=== PATIENT | female | born 1945 | race Caucasian/White ===

== ENCOUNTER → 2017-11-17 | Outpatient (CLI) | payer MEDICARE, OTHER ==
[~2017-11-17] MED LIST: ASCO100T PO; ASPI-1441 PO; AZIT-18 PO; CALC-682 PO; CELE-1 PO; CEPH500T7 PO; CHOL10005 PO; CYCL10TA29 PO; DICY-42 PO; DULO60CA51 PO; EMBREL; FLAX100041 PO; FLUT16SP20 NS; FOLI0.8C PO; GLUC500C29 PO; HYDR-4309 PO; LEV75 PO; METH2.5T43 PO; MINOCY50PT PO; MONT10TA PO; NITR-105 PO; ONDA4TAB PO; OXYC-374 PO; OXYGEN INH; PRE5 PO; PRED15SO5 OP; SULF500T46 PO; VITA1CAP55 PO
== END ==
LOC: RESP 06:43
PROVIDERS: ATTEND Nurse Practitioner Family
DX: G47.33 Obstructive sleep apnea (adult) (pediatric) (principal); R53.83 Other fatigue; R06.02 Shortness of breath; J98.4 Other disorders of lung
CPT/HCPCS: 94060; 94726; 94729

== ENCOUNTER → 2018-03-26 | Outpatient (CLI) | payer MEDICARE, OTHER ==
[2018-03-26 15:10] LABS: PLATELET COUNT, AUTOMATED 235 K/uL (150-450)
== END ==
LOC: LAB 14:54
PROVIDERS: ATTEND Physician Assistant
DX: M05.79 Rheumatoid arthritis with rheumatoid factor of multiple sites without organ or systems involvement (principal); Z79.899 Other long term (current) drug therapy
CPT/HCPCS: 36415; 82565; 84450; 85025; 85651

== ENCOUNTER → 2018-03-26 | Outpatient (CLI) | payer MEDICARE, OTHER ==
--- NOTE | 2018-03-27 15:46 | RADIOLOGY IMAGING REPORT ---
FACILITY: [facility] PATIENT NAME: JUAN CARDENAS : [id number] MR: [id number] V: [id number] EXAM DATE: [id number] ORDERING PHYSICIAN: SWATHI MOTA TECHNOLOGIST: Sophia Leiva PROCEDURE:BILATERAL DIGITAL SCREENING MAMMOGRAM WITH CAD ASSISTED INTERPRETATION & 3D TOMOSYNTHESIS COMPARISON:Prior mammograms dated 05/05/14. INDICATIONS:SCREENING FINDINGS: A small amount of fibroglandular tissue is seen throughout the breasts. The parenchymal pattern has remained stable allowing for difference in mammographic technique & patient positioning. There is no evidence of malignant appearing mass, malignant appearing calcification or other secondary sign of malignancy in either breast. DIAGNOSTIC CATEGORY 1--NEGATIVE. RECOMMENDATIONS: ROUTINE MAMMOGRAM AND CLINICAL EVALUATION. IMPRESSION: BIRADS 1: Negative. No significant abnormality is seen. Dictated by: Archana Yuan M.D. on 03/26/2018 at 15:56 Transcribed by: JUAN on 03/27/2018 at 8:09 Approved by: Archana Yuan M.D. on 03/27/2018 at 15:45 [facility]
== END ==
LOC: MAMO 03-20 02:11
PROVIDERS: ATTEND Nurse Practitioner Family
DX: Z12.31 Encounter for screening mammogram for malignant neoplasm of breast (principal)
CPT/HCPCS: 77063; 77067

== ENCOUNTER 2018-07-14 17:01 | Emergency (ER) | payer MEDICARE, OTHER ==
--- NOTE | 2018-07-14 17:20 | ER Report ---
History and Physical Time Seen By MD: 17:15 Hx. of Stated Complaint: CHEST PAIN SINCE 12:30. WAS DRIVING AND STRESSED OUT. WENT HOME, IT GOT WORSE, WENT TO URGENT CARE. 2 0.4 NTG 323MG ASA 25MCG FENTYNAL HPI/ROS CHIEF COMPLAINT: Chest pain HISTORY OF PRESENT ILLNESS: This is a 72-year-old female presents to the em ergency department via EMS for chest pain. Patient states today she was downtown running some errands, around 12:30 she developed some anterior chest pain that did radiate to her back between her shoulder blades. Patient thought that she should go have it evaluated went urgent care, was subtotally sent to the ER for further evaluation. Patient arrives almost pain-free at this time, she did get nitroglycerin and round. They didn't EKG at urgent care there was some concern of flipped T waves. Patient denies shortness of breath, no nausea or vomiting, no diaphoresis. No recent illnesses. Patient states she has been under increased stress here recently, she does help take care of her mother who lives with her. No headaches or rashes. No other complaints. REVIEW OF SYSTEMS: Constitutional: No fever, no chills. Eyes: No discharge. ENT: No sore throat. Cardiovascular: As above. Respiratory: No cough, no shortness of breath. Gastrointestinal: No abdominal pain, no vomiting. Genitourinary: No hematuria. Musculoskeletal: As above. Skin: No rashes. Neurological: No headache. Allergies: Coded Allergies: codeine (Verified Allergy, Intermediate, nausea, 02/28/17) propoxyphene (Verified Allergy, Intermediate, nausea, 02/28/17) Home Meds Active Scripts Ondansetron (ZOFRAN ODT) 4 Mg Tab.rapdis, 4 MG PO Q8H for Nausea, #12 TAB.QUINN 0 Refills Prov:KLARISSA PEGUERO MD 11/02/16 Hydrocodone Bit/Acetaminophen (NORCO 5-325 TABLET) 1 Each Tablet, 1 EACH PO Q4H for PAIN, #20 TAB 0 Refills Prov:KLARISSA PEGUERO MD 11/02/16 Reported Medications Cholecalciferol (Vitamin D3) (VITAMIN D3) 1,000 Unit Tablet, 2 TAB PO DAILY, TAB 04/24/17 Flaxseed Oil (FLAX SEED OIL) 1,000 Mg Capsule, 2 TAB PO DAILY, CAPSULE 04/24/17 Folic Acid (Folic Acid) 0.8 Mg Capsule, 2 TAB PO DAILY 04/24/17 Montelukast Sodium (SINGULAIR) 10 Mg Tablet, 1 TAB PO QDAY, TAB 04/24/17 Prednisolone Sod Phos 15 Mg/5 Ml (PREDNISOLONE SOD PHOS 15 MG/5 ML) 15 Mg/5 Ml Solution, 1 DROP OP QID, BOT 02/28/17 Sulfadiazine (SULFADIAZINE) 500 Mg Tablet, 500 MG PO BID 02/28/17 Cyclobenzaprine Hcl (CYCLOBENZAPRINE HCL) 10 Mg Tablet, 10 MG PO QHS, #9 TAB 02/28/17 Methotrexate Sodium (METHOTREXATE) 2.5 Mg Tablet, 7 TAB PO QWK 02/28/17 Calcium Carbonate (Calcium) 1.25 G Tablet, 1.25 G PO DAILY 12/11/07 Vitamin B Complex (Super B Complex) 1 Cap Capsule, 1 CAP PO DAILY 12/11/07 Glucosamine Sulfate (Glucosamine) 500 Mg Capsule, 500 MG PO DAILY 12/11/07 Ascorbic Acid (Vitamin C) 100 Mg Tablet, 100 MG PO DAILY 12/11/07 Fluticasone Propionate (Flonase) 16 Gm [place], 2 DAV NS BID 12/11/07 Minocycline Hcl (Minocin) 50 Mg Capsule, 50 MG PO BID 12/11/07 Duloxetine Hcl (Cymbalta) 60 Mg Capsule.dr, 60 MG PO DAILY 12/11/07 Levothyroxine Sodium (Synthroid/Levothroid) 0.075 Mg Tab, 0.075 MG PO QDAY 12/11/07 Past Medical/Surgical History The patient has a past medical and surgical history of arthritis, Sjogren syndrome, heart murmur, tonsillectomy, hysterectomy. Reviewed Nurses Notes: Yes Hx Smoking: No Smoking Status: Never Smoker Exposure to Second Hand Smoke?: No Hx Substance Use Disorder: No Hx Alcohol Use: Yes (RARE) Constitutional Vital Sign - Last 24 Hours 07/14/18 07/14/18 07/14/18 07/14/18 17:01 17:05 17:13 17:16 Temp 99.6 Pulse ??? 84 84 Resp 18 13 B/P (MAP) 120/69 120/69 (86) Pulse Ox 91 94 O2 Delivery Room Air 07/14/18 07/14/18 07/14/18 07/14/18 17:30 17:31 17:46 18:00 Pulse 81 81 Resp 14 17 B/P (MAP) 101/75 (84) 123/69 (87) Pulse Ox 94 96 07/14/18 07/14/18 07/14/18 07/14/18 18:01 18:16 18:30 18:31 Pulse 78 80 79 Resp 14 32 13 B/P (MAP) 99/90 (93) Pulse Ox 94 90 95 07/14/18 07/14/18 07/14/18 07/14/18 18:36 18:51 19:00 19:06 Pulse 79 80 84 Resp 10 12 12 B/P (MAP) 116/67 (83) Pulse Ox 92 91 92 07/14/18 07/14/18 07/14/18 07/14/18 19:21 19:30 19:36 19:51 Pulse 86 80 81 Resp 19 18 16 B/P (MAP) 113/63 (80) Pulse Ox 93 94 93 07/14/18 20:00 B/P (MAP) 113/66 (82) Physical Exam General Appearance: The patient is alert, has no immediate need for airway protection and no signs of toxicity. Eyes: Pupils equal and round no pallor or injection. ENT, Mouth: Mucous membranes are moist. Respiratory: There are no retractions, lungs are clear to auscultation. Cardiovascular: Regular rate and rhythm, systolic murmur, no clicks or rubs. Gastrointestinal: Abdomen is soft and non tender, no masses, bowel sounds nor mal. Neurological: Alert and oriented 4. Moving all extremities. Following all commands. No focal neuro deficits. Skin: Warm and dry, no rashes. Musculoskeletal: Neck is supple non tender. Extremities are nontender, nonswollen and have full range of motion. DIFFERENTIAL DIAGNOSIS: After history and physical exam differential diagnosis was considered for chest pain including but not limited to myocardial ischemia, pericarditis pulmonary embolus, chest wall pain, pleural inflammation and pulmonary infectious causes. Medical Decision Making Data Points Result Diagram: 07/14/18 1706 07/14/18 1706 Laboratory Hematology Test 07/14/18 17:06 07/14/18 20:04 Red Blood Count 4.30 M/uL (4.17-5.56) Mean Corpuscular Volume 92.4 fL (80.0-96.0) Mean Corpuscular Hemoglobin 31.3 pg (26.0-33.0) Mean Corpuscular Hemoglobin Concent 33.8 g/dL (32.0-36.0) Red Cell Distribution Width 14.4 % (11.5-14.5) Mean Platelet Volume 9.0 fL (7.2-11.1) Neutrophils (%) (Auto) 70.0 % (39.4-72.5) Lymphocytes (%) (Auto) 15.1 % (17.6-49.6) Monocytes (%) (Auto) 12.3 % (4.1-12.4) Eosinophils (%) (Auto) 2.0 % (0.4-6.7) Basophils (%) (Auto) 0.6 % (0.3-1.4) Nucleated RBC Relative Count (auto) 0.0 /100WBC Neutrophils # (Auto) 5.6 K/uL (2.0-7.4) Lymphocytes # (Auto) 1.2 K/uL (1.3-3.6) Monocytes # (Auto) 1.0 K/uL (0.3-1.0) Eosinophils # (Auto) 0.2 K/uL (0.0-0.5) Basophils # (Auto) 0.0 K/uL (0.0-0.1) Nucleated RBC Absolute Count (auto) 0.00 K/uL Sodium Level 142 mmol/L (137-145) Potassium Level 4.8 mmol/L (3.5-5.0) Chloride Level 103 mmol/L (98-107) Carbon Dioxide Level 31 mmol/L (22-31) Blood Urea Nitrogen 17 mg/dl (7-18) Creatinine 0.80 mg/dl (0.52-1.04) Glomerular Filtration Rate Calc > 60.0 Random Glucose 92 mg/dl (75-110) Calcium Level 9.4 mg/dl (8.4-10.2) Total Bilirubin 0.3 mg/dl (0.2-1.3) Aspartate Amino Transf (AST/SGOT) 27 U/L (0-35) Alanine Aminotransferase (ALT/SGPT) 28 U/L (0-56) Alkaline Phosphatase 93 U/L (0-126) Total Protein 5.9 g/dl (6.3-8.2) Albumin 3.7 g/dl (3.5-5.0) Troponin I < 0.012 ng/ml Chemistry Test 07/14/18 17:06 07/14/18 20:04 White Blood Count 8.1 k/uL (4.5-11.0) Red Blood Count 4.30 M/uL (4.17-5.56) Hemoglobin 13.5 g/dL (12.0-16.0) Hematocrit 39.8 % (34.0-47.0) Mean Corpuscular Volume 92.4 fL (80.0-96.0) Mean Corpuscular Hemoglobin 31.3 pg (26.0-33.0) Mean Corpuscular Hemoglobin Concent 33.8 g/dL (32.0-36.0) Red Cell Distribution Width 14.4 % (11.5-14.5) Platelet Count 193 K/uL (150-450) Mean Platelet Volume 9.0 fL (7.2-11.1) Neutrophils (%) (Auto) 70.0 % (39.4-72.5) Lymphocytes (%) (Auto) 15.1 % (17.6-49.6) Monocytes (%) (Auto) 12.3 % (4.1-12.4) Eosinophils (%) (Auto) 2.0 % (0.4-6.7) Basophils (%) (Auto) 0.6 % (0.3-1.4) Nucleated RBC Relative Count (auto) 0.0 /100WBC Neutrophils # (Auto) 5.6 K/uL (2.0-7.4) Lymphocytes # (Auto) 1.2 K/uL (1.3-3.6) Monocytes # (Auto) 1.0 K/uL (0.3-1.0) Eosinophils # (Auto) 0.2 K/uL (0.0-0.5) Basophils # (Auto) 0.0 K/uL (0.0-0.1) Nucleated RBC Absolute Count (auto) 0.00 K/uL Glomerular Filtration Rate Calc > 60.0 Calcium Level 9.4 mg/dl (8.4-10.2) Total Bilirubin 0.3 mg/dl (0.2-1.3) Aspartate Amino Transf (AST/SGOT) 27 U/L (0-35) Alanine Aminotransferase (ALT/SGPT) 28 U/L (0-56) Alkaline Phosphatase 93 U/L (0-126) Total Protein 5.9 g/dl (6.3-8.2) Albumin 3.7 g/dl (3.5-5.0) Troponin I < 0.012 ng/ml EKG/Imaging EKG Interpretation 12 lead EKG: EKG 1719. Rhythm: Normal sinus rhythm, ventricular rate 79 BPM. [place]: normal QRS: normal ST segments: No ST depression or elevation identified. Inverted T waves in V2, V3, flattened T waves in V4, V5 and V6. No significant and changes from the 01/14/2016 EKG, inverted T waves noted in the previous EKG. 12 lead EKG: Time of repeat EKG 1955. Rhythm: Normal sinus rhythm, ventricular rate 78 BPM. [place]: Left QRS: normal ST segments: Inverted T waves in all the leads, this is slightly different from the previous EKG where the V4, V5 and V6 leads were flattened. No significant changes from the previous EKG. Imaging CHEST PA AND LAT INDICATION: Chest Pain COMPARISON: 04/22/2017 FINDINGS: Heart size within normal limits. There is no focal infiltrate or lobar consolidation. There is no pneumothorax or pleural effusion. IMPRESSION: 1. No acute cardiopulmonary process. Report Dictated By: Sundar Rivera at 07/14/2018 6:33 PM Report E-Signed By: Sundar Rivera at 07/14/2018 6:34 PM WSN:[id number] ED Course/Re-evaluation Clinical Indication for ER IV: Hydration, IV Access ED Course The patient was admitted to room. A history of physical were obtained. Differential diagnoses were considered. An IV was started. A CBC, CMP, troponin were obtained. Lab studies unremarkable. Negative troponin. A two-view chest x- ray negative for any acute cardiopulmonary process. I reviewed the laboratory studies and a chest x-ray with the patient. I did tell her head like to repeat a troponin and EKG, the patient is agreeable to this. Repeat EKG unchanged from pr evious EKGs. Repeat troponin negative. During the patient's visit that she remained pain-free. I did tell the patient I don't have a clear explanation as to why she is having the chest discomfort, however I do not feel this is from ACS. I did recommend following up with her projection technician as well as her primary care provider within the next 1-2 weeks. Return to the ER for any other concerns or worsening symptoms. Patient exposed understanding and was discharged home. 07/14/2018 6:43:21 pm patient states she is feeling better. Patient states that she feels the chest pain was secondary to stress. Decision to Disposition Date: Jul 14, 2018 Decision to Disposition Time: 21:02 Depart Departure Latest Vital Signs Vital Signs Date Time Temp Pulse Resp B/P (MAP) Pulse Ox O2 Delivery O2 Flow Rate FiO2 07/14/18 20:00 113/66 (82) 07/14/18 19:51 81 16 93 07/14/18 17:05 99.6 Room Air Impression: Primary Impression: Chest pain of unknown etiology Condition: Improved Disposition: HOME OR SELF-CARE Referrals: YVONNE CHACON MD (PCP) 1 Week CARDIOLOGY Patient Instructions: Chest Pain (ED) Additional Instructions: There is no indication of heart damage on today's exam, the blood studies were negative. EKGs were unchanged from previous EKGs. I would however recommend following up with Dr. Chacon within at least one week for reevaluation. I would also recommend following up with your projection technician as soon as you can for reevaluation. Drink plenty of water. Get Plenty of rest. Continue taking your current medications. Return to the ER for any other concerns or worsening symptoms. KRISTYN BISHOP INSPECTOR [employer]REL-BC Jul 14, 2018 17:19
[2018-07-14] MEDS ORDERED: NITROGLYCERIN OINT 1 GM PKT TP ONE (17:45)
[2018-07-14] MEDS ORDERED: ASPIRIN 81 MG CHEW PO ONE (17:45)
--- NOTE | 2018-07-14 17:51 | EKG ---
FACILITY: [facility] - [place] PATIENT NAME: JUAN CARDENAS : [id number] MR: [id number] V: [id number] EXAM DATE: ORDERING PHYSICIAN: KRISTYN BISHOP TECHNOLOGIST: Test Reason : chest pain Blood Pressure : / mmHG Vent. Rate : 079 BPM Atrial Rate : 079 BPM P-R Int : 164 ms QRS Dur : 070 ms QT Int : 388 ms P-R-T Axes : 043 -36 042 degrees QTc Int : 444 ms Normal sinus rhythm Left axis deviation T wave abnormality, consider anterior ischemia Abnormal ECG When compared with ECG of 14-JAN-2016 17:36, premature supraventricular complexes are no longer present No significant change was found Confirmed by Handy Velazquez ([id number]) on 07/14/2018 8:45:51 PM Referred By: Confirmed By:Handy Whitehead
[2018-07-14 17:59] LABS: PLATELET COUNT, AUTOMATED 193 K/uL (150-450)
--- NOTE | 2018-07-14 18:38 | RADIOLOGY IMAGING REPORT ---
FACILITY: [facility] PATIENT NAME: Citlalli Martines : 1945 MR: [id number] V: [id number] EXAM DATE: ORDERING PHYSICIAN: KRISTYN BISHOP TECHNOLOGIST: Location: [facility] [place] Patient: Citlalli Martines : 1945 Visit/Account:[id number] Date of Sevice: 07/14/2018 CHEST PA AND LAT INDICATION: Chest Pain COMPARISON: 04/22/2017 FINDINGS: Heart size within normal limits. There is no focal infiltrate or lobar consolidation. There is no pneumothorax or pleural effusion. IMPRESSION: 1. No acute cardiopulmonary process. Report Dictated By: Sundar Rivera at 07/14/2018 6:33 PM Report E-Signed By: Sundar Rivera at 07/14/2018 6:34 PM WSN:[id number]
[2018-07-14] MEDS ORDERED: EMS NS 0.9%(*) 1000 ML BAG 1,000 ML IV ONE (19:15)
--- NOTE | 2018-07-14 20:59 | EKG ---
FACILITY: [facility] - [place], [place] PATIENT NAME: JUAN CARDENAS : [id number] MR: [id number] V: [id number] EXAM DATE: ORDERING PHYSICIAN: KRISTYN BISHOP TECHNOLOGIST: JIL Grant Reason : REPEAT EKG Blood Pressure : / mmHG Vent. Rate : 078 BPM Atrial Rate : 078 BPM P-R Int : 156 ms QRS Dur : 072 ms QT Int : 370 ms P-R-T Axes : 049 -40 051 degrees QTc Int : 421 ms Normal sinus rhythm Left axis deviation ST and T wave abnormality, consider anterior ischemia Abnormal ECG When compared with ECG of 14-JUL-2018 17:19, No significant change was found Confirmed by Handy Velazquez ([id number]) on 07/15/2018 7:24:48 AM Referred By: Confirmed By:Handy Whitehead
[2018-07-14 21:00] VITALS: BP 122/66
== END 2018-07-14 21:20 | disposition home or self-care (01) ==
LOC: ER 17:17
DX: R07.9 Chest pain, unspecified (principal)
CPT/HCPCS: 36415; 71046; 84484; 85025; 93005; 96360; 99284; A9270; 82040; 82247; 82310; 82374; 82435; 82565; 82947; 84075; 84132; 84155; 84295; 84450; 84460; 84520

== ENCOUNTER → 2018-08-05 | Outpatient (CLI) | payer MEDICARE, OTHER ==
[2018-08-05 15:21] LABS: PLATELET COUNT, AUTOMATED 220 K/uL (150-450)
== END ==
LOC: LAB 15:09
PROVIDERS: ATTEND Physician Assistant
DX: M05.79 Rheumatoid arthritis with rheumatoid factor of multiple sites without organ or systems involvement (principal); Z79.899 Other long term (current) drug therapy
CPT/HCPCS: 36415; 82565; 84450; 85025; 85651

== ENCOUNTER → 2018-09-16 | Outpatient (CLI) | payer MEDICARE, OTHER ==
[~2018-09-16] MED LIST changes: -HYDR-4309 PO; +HYDR-653 PO
== END ==
LOC: US 01:23
PROVIDERS: ATTEND Family Medicine
DX: R55 Syncope and collapse (principal)
CPT/HCPCS: 93306

== ENCOUNTER → 2019-01-04 | Outpatient (CLI) | payer MEDICARE, OTHER ==
--- NOTE | 2019-01-04 16:25 | RADIOLOGY IMAGING REPORT ---
FACILITY: [facility] PATIENT NAME: Citlalli Martines : 1945 MR: [id number] V: [id number] EXAM DATE: ORDERING PHYSICIAN: LOUISA ANGELA TECHNOLOGIST: Location: [facility] - [place] Patient: Citlalli Martines : 1945 Visit/Account:[id number] Date of Sevice: 01/04/2019 HIPS BILATERAL HISTORY: Fall in September 2018 with increasing pain with bending and sitting Additional history: None COMPARISON: CT abdomen pelvis 01/23/2017 FINDINGS: There is anUsual curvilinear lucency seen over the right ilium which probably represents air and sto ol in the colon. However, it has an atypical appearance and and unusual fracture in the ileum cannot BE excluded with certainty. Pelvic girdle otherwise unremarkable. The hips appear unremarkable wit h the exception of mild joint space narrowing. There is no osteophytosis or eburnation and no eviden ce of fractures. There is a soft tissue mass partially projecting over the right pelvis but this corresponds to a larg e inferior renal cyst seen on the previous CT. IMPRESSION: Mild chondral thinning of both hip joints-early arthropathy but no evidence of hip fractures. Unusual curvilinear lucency over the right ilium probably represents air and fecal material in colon but an unusual fracture cannot be excluded. I would recommend a follow-up repeat pelvic radiograph a nd if this finding is unchanged in appearance than it would warrant CT scan for further evaluation. Report Dictated By: Eric Kennedy MD at 01/04/2019 4:13 PM Report E-Signed By: Eric Kennedy MD at 01/04/2019 4:21 PM WSN:[id number]
== END ==
LOC: RAD 14:07
PROVIDERS: ATTEND Internal Medicine Rheumatology
DX: M24.10 Other articular cartilage disorders, unspecified site (principal)
CPT/HCPCS: 73522

== ENCOUNTER → 2019-01-13 | Outpatient (CLI) | payer MEDICARE, OTHER ==
[2019-01-13 11:14] LABS: PLATELET COUNT, AUTOMATED 224 K/uL (150-450)
== END ==
LOC: LAB 10:48
PROVIDERS: ATTEND Physician Assistant
DX: M05.79 Rheumatoid arthritis with rheumatoid factor of multiple sites without organ or systems involvement (principal); Z79.899 Other long term (current) drug therapy
CPT/HCPCS: 36415; 82565; 84450; 85025; 85651

== ENCOUNTER 2019-03-14 10:54 | Emergency (ER) | payer MEDICARE, OTHER ==
--- NOTE | 2019-03-14 10:59 | ER Report ---
History and Physical Time Seen By MD: 10:58 HPI/ROS CHIEF COMPLAINT: Rheumatoid arthritis flare HISTORY OF PRESENT ILLNESS: This is a 73-year-old female presents to the emergency department for systemic arthritic pain. Patient states that she has a history of rheumatoid arthritis, typically is well-controlled however she began to have increased pain last night and today, she states typically she would wait and speak with her access clinician would place her on some prednisone however she states the systemic pain is too unbearable and decided to come in for evaluation. She has no chest pain or shortness of breath. She was recently started on amoxicillin, for an upper respiratory infection per her primary care provider. She states this is improving. No fevers or chills. No shortness of breath. No rashes. No headaches. REVIEW OF SYSTEMS: Constitutional: No fever, no chills. Eyes: No discharge. ENT: No sore throat. Cardiovascular: No chest pain, no palpitations. Respiratory: No cough, no shortness of breath. Gastrointestinal: No abdominal pain, no vomiting. Genitourinary: No hematuria. Musculoskeletal: As above. Skin: No rashes. Neurological: No headache. Allergies: Coded Allergies: codeine (Verified Allergy, Intermediate, nausea, 02/28/17) propoxyphene (Verified Allergy, Intermediate, nausea, 02/28/17) Home Meds Active Scripts Prednisone (PREDNISONE) 20 Mg Tablet, 20 MG PO BID, #10 TAB Prov:KRISTYN BISHOP [facility]- 03/14/19 Cyclobenzaprine Hcl (CYCLOBENZAPRINE HCL) 10 Mg Tablet, 5-10 MG PO TID PRN for MUSCLE SPASMS, #9 TAB Prov:KRISTYN BISHOP [facility]- 03/14/19 Reported Medications Cholecalciferol (Vitamin D3) (VITAMIN D3) 1,000 Unit Tablet, 2 TAB PO DAILY, TAB 04/24/17 Flaxseed Oil (FLAX SEED OIL) 1,000 Mg Capsule, 2 TAB PO DAILY, CAPSULE 04/24/17 Folic Acid (Folic Acid) 0.8 Mg Capsule, 2 TAB PO DAILY 04/24/17 Montelukast Sodium (SINGULAIR) 10 Mg Tablet, 1 TAB PO QDAY, TAB 04/24/17 Prednisolone Sod Phos 15 Mg/5 Ml (PREDNISOLONE SOD PHOS 15 MG/5 ML) 15 Mg/5 Ml Solution, 1 DROP OP QID, BOT 02/28/17 Sulfadiazine (SULFADIAZINE) 500 Mg Tablet, 500 MG PO BID 02/28/17 Methotrexate Sodium (METHOTREXATE) 2.5 Mg Tablet, 7 TAB PO QWK 02/28/17 Calcium Carbonate (Calcium) 1.25 G Tablet, 1.25 G PO DAILY 12/11/07 Vitamin B Complex (Super B Complex) 1 Cap Capsule, 1 CAP PO DAILY 12/11/07 Glucosamine Sulfate (Glucosamine) 500 Mg Capsule, 500 MG PO DAILY 12/11/07 Ascorbic Acid (Vitamin C) 100 Mg Tablet, 100 MG PO DAILY 12/11/07 Fluticasone Propionate (Flonase) 16 Gm [place], 2 DAV NS BID 12/11/07 Minocycline Hcl (Minocin) 50 Mg Capsule, 50 MG PO BID 12/11/07 Duloxetine Hcl (Cymbalta) 60 Mg Capsule.dr, 60 MG PO DAILY 12/11/07 Levothyroxine Sodium (Synthroid/Levothroid) 0.075 Mg Tab, 0.075 MG PO QDAY 12/11/07 Discontinued Reported Medications Cyclobenzaprine Hcl (CYCLOBENZAPRINE HCL) 10 Mg Tablet, 10 MG PO QHS, #9 TAB 02/28/17 Discontinued Scripts Ondansetron (ZOFRAN ODT) 4 Mg Tab.rapdis, 4 MG PO Q8H for Nausea, #12 TAB.QUINN 0 Refills Prov:KLARISSA PEGUERO MD 11/02/16 Hydrocodone Bit/Acetaminophen (NORCO 5-325 TABLET) 1 Each Tablet, 1 EACH PO Q4H for PAIN, #20 TAB 0 Refills Prov:KLARISSA PEGUERO MD 11/02/16 Past Medical/Surgical History The patient has a past medical and surgical history of arthritis, Sjogren syndrome, heart murmur, tonsillectomy, hysterectomy. Reviewed Nurses Notes: Yes Hx Smoking: No Smoking Status: Never Smoker Exposure to Second Hand Smoke?: No Hx Substance Use Disorder: No Hx Alcohol Use: Yes (RARE) Constitutional Vital Sign - Last 24 Hours 03/14/19 03/14/19 03/14/19 03/14/19 10:54 10:57 10:58 11:00 Temp 99.0 Pulse ??? 80 Resp 20 B/P (MAP) 136/77 136/77 (96) 141/65 (90) Pulse Ox 91 O2 Delivery Room Air 03/14/19 03/14/19 03/14/19 03/14/19 11:04 11:14 11:30 11:34 Pulse 78 75 71 B/P (MAP) 113/68 (83) Pulse Ox 90 91 93 Physical Exam General Appearance: The patient is alert, has no immediate need for airway protection and no signs of toxicity. Eyes: Pupils equal and round no pallor or injection. ENT, Mouth: Mucous membranes are moist. Respiratory: There are no retractions, lungs are clear to auscultation. Cardiovascular: Regular rate and rhythm. Very faint distant murmur, no clicks or rubs. Gastrointestinal: Abdomen is soft and non tender, no masses, bowel sounds normal. Neurological: Alert and oriented 4. Moving all extremities. Following all commands. No focal neuro deficits. Skin: Warm and dry, no rashes. Musculoskeletal: Neck is supple non tender. Extremities are nontender, nonswollen and have full range of motion. DIFFERENTIAL DIAGNOSIS: After history and physical exam differential diagnosis was considered for Lyme disease, arthritis, influenza. Medical Decision Making ED Course/Re-evaluation ED Course When the patient was admitted to room. A history physical obtained. Differential diagnoses were considered. After a lengthy discussion with patient, determined that this is an exacerbation of her rheumatoid arthritis, she states perhaps she overdid it yesterday when assisting her mother, she is her primary clinical manager home care. She was given 60 mg IM Norflex. A prescription for Flexeril. She is also given a burst of prednisone. She will contact her primary care provider and or access clinician this week for reevaluation and follow-up. Patient had no other questions or concerns at this time and discharged home. Decision to Disposition Date: March 14, 2019 Decision to Disposition Time: 11:38 Depart Departure Latest Vital Signs Vital Signs Date Time Temp Pulse Resp B/P (MAP) Pulse Ox O2 Delivery O2 Flow Rate FiO2 03/14/19 11:34 71 93 03/14/19 11:30 113/68 (83) 03/14/19 10:57 99.0 20 Room Air Impression: Primary Impression: Rheumatoid arthritis Condition: Improved Disposition: HOME OR SELF-CARE Referrals: YVONNE CHACON MD (PCP) 1 Week New Scripts Prednisone (PREDNISONE) 20 Mg Tablet 20 MG PO BID, #10 TAB Prov: KRISTYN BISHOP WHITE MIXING OPERATOR-BC 03/14/19 Cyclobenzaprine Hcl (CYCLOBENZAPRINE HCL) 10 Mg Tablet 5-10 MG PO TID PRN for MUSCLE SPASMS, #9 TAB Prov: KRISTYN BISHOP WHITE MIXING OPERATOR-BC 03/14/19 Patient Instructions: Rheumatoid Arthritis (ED) Additional Instructions: We've given you an injection of Norflex a muscle relaxer, started you prednisone today as well. Please contact your access clinician tomorrow for follow-up this next week. If unable to follow-up with your access clinician this week contact Dr. Chacon for reevaluation. Be sure to drink plenty of water. Get plenty of rest. As the Flexeril can cause severe drowsiness, please use this at night to start. If you need additional pain relief you can take Tylenol, however with the prednisone avoid ibuprofen. Return to the ER for any other concerns or worsening symptoms. Problem Qualifiers Primary Impression: Rheumatoid arthritis Rheumatoid arthritis location: multiple sites Rheumatoid factor presence: unspecified presence Qualified Codes: M06.9 - Rheumatoid arthritis, unspecified KRISTYN BISHOP WHITE MIXING OPERATOR-BC March 14, 2019 10:59
[2019-03-14] MEDS ORDERED: ORPHENADRINE 60MG/2ML INJ IM ONE (11:20)
[2019-03-14] MEDS ORDERED: PRED20TA6 PO (11:20)
[2019-03-14] MEDS ORDERED: CYCL10TA29 PO (11:20)
[2019-03-14] MEDS ORDERED: predniSONE 20 MG TAB PO ONE (11:20)
[2019-03-14 11:30] VITALS: BP 113/68
== END 2019-03-14 11:39 | disposition home or self-care (01) ==
LOC: ER 11:31
DX: M06.9 Rheumatoid arthritis, unspecified (principal)
CPT/HCPCS: 96372; 99283; J2360; J7512

== ENCOUNTER → 2019-03-22 | Outpatient (CLI) | payer MEDICARE, OTHER ==
[~2019-03-22] MED LIST changes: +PRED20TA6 PO
[2019-03-22 16:23] LABS: PLATELET COUNT, AUTOMATED 254 K/uL (150-450)
== END ==
LOC: LAB 15:30
PROVIDERS: ATTEND Internal Medicine Rheumatology
DX: M05.79 Rheumatoid arthritis with rheumatoid factor of multiple sites without organ or systems involvement (principal); Z79.899 Other long term (current) drug therapy
CPT/HCPCS: 36415; 82565; 84450; 85025; 85651

== ENCOUNTER 2019-04-29 13:59 | Emergency (ER) | payer MEDICARE, OTHER ==
--- NOTE | 2019-04-29 14:06 | ER Report ---
History and Physical Time Seen By : 14:04 HPI/ROS CHIEF COMPLAINT: Chest pain HISTORY OF PRESENT ILLNESS: This is a 73-year-old female who presents to the emergency department for chest pain. Patient states that about 30 minutes prior to arrival, she was at a drive through restaurant, suddenly developed left anterior chest pain underneath her left breast into the back. She became very concerned subsequently drove to the emergency department for further evaluation. Patient arrives somewhat anxious, but pain has basically resolved. She does have a history of rheumatoid arthritis and Sjogren's syndrome. She was seen and evaluated in the emergency department recently for similar episode however that pain was not quite as intense. Patient denies recent travel, no recent trauma, she denies shortness of breath, no diaphoresis, no rashes. No headaches. REVIEW OF SYSTEMS: Constitutional: No fever, no chills. Eyes: No discharge. ENT: No sore throat. Cardiovascular: As above. Respiratory: No cough, no shortness of breath. Gastrointestinal: No abdominal pain, no vomiting. Genitourinary: No hematuria. Musculoskeletal: No back pain. Skin: No rashes. Neurological: No headache. Allergies: Coded Allergies: codeine (Verified Allergy, Intermediate, nausea, 04/29/19) propoxyphene (Verified Allergy, Intermediate, nausea, 04/29/19) Home Meds Active Scripts Prednisone (PREDNISONE) 20 Mg Tablet, 20 MG PO BID, #10 TAB Prov:KRISTYN BISHOP [facility]- 03/14/19 Cyclobenzaprine Hcl (CYCLOBENZAPRINE HCL) 10 Mg Tablet, 5-10 MG PO TID PRN for MUSCLE SPASMS, #9 TAB Prov:KRISTYN BISHOP [facility]- 03/14/19 Reported Medications Cholecalciferol (Vitamin D3) (VITAMIN D3) 1,000 Unit Tablet, 2 TAB PO DAILY, TAB 04/24/17 Flaxseed Oil (FLAX SEED OIL) 1,000 Mg Capsule, 2 TAB PO DAILY, CAPSULE 04/24/17 Folic Acid (Folic Acid) 0.8 Mg Capsule, 2 TAB PO DAILY 04/24/17 Montelukast Sodium (SINGULAIR) 10 Mg Tablet, 1 TAB PO QDAY, TAB 04/24/17 Prednisolone Sod Phos 15 Mg/5 Ml (PREDNISOLONE SOD PHOS 15 MG/5 ML) 15 Mg/5 Ml Solution, 1 DROP OP QID, BOT 02/28/17 Sulfadiazine (SULFADIAZINE) 500 Mg Tablet, 500 MG PO BID 02/28/17 Methotrexate Sodium (METHOTREXATE) 2.5 Mg Tablet, 7 TAB PO QWK 02/28/17 Calcium Carbonate (Calcium) 1.25 G Tablet, 1.25 G PO DAILY 12/11/07 Vitamin B Complex (Super B Complex) 1 Cap Capsule, 1 CAP PO DAILY 12/11/07 Glucosamine Sulfate (Glucosamine) 500 Mg Capsule, 500 MG PO DAILY 12/11/07 Ascorbic Acid (Vitamin C) 100 Mg Tablet, 100 MG PO DAILY 12/11/07 Fluticasone Propionate (Flonase) 16 Gm Whigham, 2 DAV NS BID 12/11/07 Minocycline Hcl (Minocin) 50 Mg Capsule, 50 MG PO BID 12/11/07 Duloxetine Hcl (Cymbalta) 60 Mg Capsule.dr, 60 MG PO DAILY 12/11/07 Levothyroxine Sodium (Synthroid/Levothroid) 0.075 Mg Tab, 0.075 MG PO QDAY 12/11/07 Past Medical/Surgical History The patient has a past medical and surgical history of arthritis, Sjogren syndrome, heart murmur, tonsillectomy, hysterectomy. Reviewed Nurses Notes: Yes Hx Smoking: No Smoking Status: Never Smoker Exposure to Second Hand Smoke?: No Hx Substance Use Disorder: No Hx Alcohol Use: Yes (RARE) Constitutional Vital Sign - Last 24 Hours 04/29/19 04/29/19 04/29/19 04/29/19 14:02 14:03 14:04 14:09 Temp 98.5 Pulse 86 68 66 Resp 16 16 17 B/P (MAP) 139/82 139/82 (101) Pulse Ox 83 84 90 O2 Delivery Room Air 04/29/19 04/29/19 04/29/19 04/29/19 14:10 14:10 14:14 14:19 Pulse 69 69 Resp 11 21 Pulse Ox 94 92 O2 Flow Rate 2.0 3.0 04/29/19 04/29/19 04/29/19 04/29/19 14:24 14:30 14:35 14:50 Pulse 65 66 60 Resp 9 14 24 B/P (MAP) 121/62 (81) Pulse Ox 93 93 96 604/29/19 04/29/19 04/29/19 15:00 15:05 15:20 15:30 Pulse 59 60 Resp 16 10 B/P (MAP) 110/53 (72) 112/67 (82) Pulse Ox 97 98 04/29/19 04/29/19 04/29/19 04/29/19 15:35 15:50 16:00 16:05 Pulse 63 70 63 Resp 22 15 13 B/P (MAP) 120/69 (86) Pulse Ox 97 96 97 04/29/19 04/29/19 04/29/19 04/29/19 16:10 16:25 16:30 16:40 Pulse 64 65 67 Resp 21 16 26 B/P (MAP) 116/70 (85) Pulse Ox 95 98 100 04/29/19 04/29/19 04/29/19 04/29/19 16:55 17:00 17:10 17:15 Pulse 68 75 74 Resp 21 10 17 B/P (MAP) 120/68 (85) Pulse Ox 97 99 97 04/29/19 17:30 Pulse 76 Resp 20 B/P (MAP) 117/57 (77) Pulse Ox 93 Physical Exam General Appearance: The patient is alert, has no immediate need for airway protection and no signs of toxicity. Eyes: Right pupil is opaque, this is normal for the patient she did have a detached retina and the vitreous leak, left pupil is 3 mm, round and reactive to light. ENT, Mouth: Mucous membranes are dry. Respiratory: There are no retractions, lungs are clear to auscultation. Cardiovascular: Regular rate and rhythm. Systolic murmur, no clicks or rubs. Gastrointestinal: Abdomen is round, soft and non tender, no masses, bowel sounds normal. Neurological: Alert and oriented 4. Moving all extremities. Following all commands. No focal neuro deficits. Skin: Warm and dry, no rashes. Musculoskeletal: Neck is supple non tender. Extremities are nontender, nonswollen and have full range of motion. DIFFERENTIAL DIAGNOSIS: After history and physical exam differential diagnosis was considered for chest pain including but not limited to myocardial ischemia, pericarditis pulmonary embolus, chest wall pain, pleural inflammation and pulmonary infectious causes. Medical Decision Making Data Points Result Diagram: 04/29/19 1405 04/29/19 1405 Laboratory Hematology Test 04/29/19 14:05 04/29/19 16:45 Red Blood Count 4.95 M/uL (4.17-5.56) Mean Corpuscular Volume 91.7 fL (80.0-96.0) Mean Corpuscular Hemoglobin 30.2 pg (26.0-33.0) Mean Corpuscular Hemoglobin Concent 32.9 g/dL (32.0-36.0) Red Cell Distribution Width 14.5 % (11.5-14.5) Mean Platelet Volume 8.7 fL (7.2-11.1) Neutrophils (%) (Auto) 67.5 % (39.4-72.5) Lymphocytes (%) (Auto) 19.2 % (17.6-49.6) Monocytes (%) (Auto) 9.7 % (4.1-12.4) Eosinophils (%) (Auto) 2.8 % (0.4-6.7) Basophils (%) (Auto) 0.8 % (0.3-1.4) Nucleated RBC Relative Count (auto) 0.3 /100WBC Neutrophils # (Auto) 4.3 K/uL (2.0-7.4) Lymphocytes # (Auto) 1.2 K/uL (1.3-3.6) Monocytes # (Auto) 0.6 K/uL (0.3-1.0) Eosinophils # (Auto) 0.2 K/uL (0.0-0.5) Basophils # (Auto) 0.1 K/uL (0.0-0.1) Nucleated RBC Absolute Count (auto) 0.02 K/uL Sodium Level 144 mmol/L (137-145) Potassium Level 4.0 mmol/L (3.5-5.0) Chloride Level 105 mmol/L (98-107) Carbon Dioxide Level 27 mmol/L (22-31) Blood Urea Nitrogen 14 mg/dl (7-18) Creatinine 0.80 mg/dl (0.52-1.04) Glomerular Filtration Rate Calc > 60.0 Random Glucose 92 mg/dl (75-110) Calcium Level 10.4 mg/dl (8.4-10.2) Total Bilirubin 0.5 mg/dl (0.2-1.3) Aspartate Amino Transf (AST/SGOT) 30 U/L (0-35) Alanine Aminotransferase (ALT/SGPT) 34 U/L (0-56) Alkaline Phosphatase 168 U/L (0-126) Total Protein 7.2 g/dl (6.3-8.2) Albumin 4.3 g/dl (3.5-5.0) Troponin I < 0.012 ng/ml Chemistry Test 04/29/19 14:05 04/29/19 16:45 White Blood Count 6.4 k/uL (4.5-11.0) Red Blood Count 4.95 M/uL (4.17-5.56) Hemoglobin 14.9 g/dL (12.0-16.0) Hematocrit 45.4 % (34.0-47.0) Mean Corpuscular Volume 91.7 fL (80.0-96.0) Mean Corpuscular Hemoglobin 30.2 pg (26.0-33.0) Mean Corpuscular Hemoglobin Concent 32.9 g/dL (32.0-36.0) Red Cell Distribution Width 14.5 % (11.5-14.5) Platelet Count 238 K/uL (150-450) Mean Platelet Volume 8.7 fL (7.2-11.1) Neutrophils (%) (Auto) 67.5 % (39.4-72.5) Lymphocytes (%) (Auto) 19.2 % (17.6-49.6) Monocytes (%) (Auto) 9.7 % (4.1-12.4) Eosinophils (%) (Auto) 2.8 % (0.4-6.7) Basophils (%) (Auto) 0.8 % (0.3-1.4) Nucleated RBC Relative Count (auto) 0.3 /100WBC Neutrophils # (Auto) 4.3 K/uL (2.0-7.4) Lymphocytes # (Auto) 1.2 K/uL (1.3-3.6) Monocytes # (Auto) 0.6 K/uL (0.3-1.0) Eosinophils # (Auto) 0.2 K/uL (0.0-0.5) Basophils # (Auto) 0.1 K/uL (0.0-0.1) Nucleated RBC Absolute Count (auto) 0.02 K/uL Glomerular Filtration Rate Calc > 60.0 Calcium Level 10.4 mg/dl (8.4-10.2) Total Bilirubin 0.5 mg/dl (0.2-1.3) Aspartate Amino Transf (AST/SGOT) 30 U/L (0-35) Alanine Aminotransferase (ALT/SGPT) 34 U/L (0-56) Alkaline Phosphatase 168 U/L (0-126) Total Protein 7.2 g/dl (6.3-8.2) Albumin 4.3 g/dl (3.5-5.0) Troponin I < 0.012 ng/ml EKG/Imaging EKG Interpretation 12 lead EKG: Time of EKG 1404. Rhythm: Normal sinus rhythm, ventricular rate 64 bpm. [place]: normal QRS: normal ST segments: No ST depression or elevation identified, inverted T waves in V2 and V3. No significant changes from the 07/14/2018 EKG. Imaging PATIENT NAME: Citlalli Martines : 1945 MR: [id number] V: [id number] EXAM DATE: ORDERING PHYSICIAN: KRISTYN BISHOP TECHNOLOGIST: Location: [facility] Patient: Citlalli Martines : 1945 Visit/Account:[id number] Date of Sevice: 04/29/2019 Study: Frontal and lateral views of the chest Indication: Chest pain Comparison study: July 14, 2018 Findings: PA and lateral views of the chest demonstrate no evidence of acute infiltrate. There is no evidence of pleural effusion. There is no evidence of pneumothorax. The mediastinal, cardiac, and diaphragmatic contours are unremarkable. The visualized bony structures are unremarkable. IMPRESSION: Unremarkable chest. Report Dictated By: Madhu Walters at 04/29/2019 2:55 PM Report E-Signed By: Madhu Walters at 04/29/2019 3:06 PM WSN:[id number] ED Course/Re-evaluation Clinical Indication for ER IV: Hydration, IV Access ED Course The patient was admitted to room. A history and physical were obtained. Differential diagnoses were considered. An IV was started. A CBC, CMP, troponin were obtained. EKG showing normal sinus rhythm with a rate of 64 bpm. Laboratory studies unremarkable, negative troponin. Two-view chest x-ray negative for any acute cardiopulmonary process. I did review the results with the patient. Repeat troponin was negative. Did review the results with the patient, I did tell her that the pain she is experiencing is not cardiac in nature according to the laboratory studies and the workup today. The patient I did discuss the possibility of anxiety causing some of the chest pain she was experiencing, she stated that she was anxious about surgery next week. I did advise the patient that she can return to the emergency department for any other concerns or worsening symptoms, I do feel that she is okay to proceed with the knee replacement next week. Patient exposed understanding, was agreeable with this plan of care and discharged home. 04/29/2019 3:54:41 pm I did review the laboratory studies with the patient, initial troponin was negative, I did recommend a dentist troponin, the patient was agreeable. She's had no recurrent chest pain while in the emergency department. Vital signs have remained stable. Decision to Disposition Date: Apr 29, 2019 Decision to Disposition Time: 17:24 Depart Departure Latest Vital Signs Vital Signs Date Time Temp Pulse Resp B/P (MAP) Pulse Ox O2 Delivery O2 Flow Rate FiO2 04/29/19 17:30 76 20 117/57 (77) 93 04/29/19 14:10 3.0 04/29/19 14:02 98.5 Room Air Impression: Primary Impression: Non-cardiac chest pain Condition: Improved Disposition: HOME OR SELF-CARE Referrals: YVONNE CHACON MD (PCP) 1 Week Patient Instructions: Chest Pain (ED), Noncardiac Chest Pain (ED) Additional Instructions: There were no concerning findings on your laboratory studies today, EKG or chest x-ray. There is no reason to postpone your surgery next week. Be sure to drink plenty of water. Get plenty of rest. Continue your current medications as prescribed. Follow-up with your primary care provider within the next 1-2 weeks for reevaluation. Return to the emergency room for any other concerns or worsening symptoms. KRISTYN BISHOP [employer] SURVEYOR-BC Apr 29, 2019 14:06
[2019-04-29] MEDS ORDERED: ASPIRIN 81 MG CHEW ONE (14:12)
[2019-04-29] MEDS ORDERED: NS(*) 0.9% 1000 ML BAG 1,000 ML IV ONE (14:26)
--- NOTE | 2019-04-29 14:30 | EKG ---
FACILITY: [facility] - [place] PATIENT NAME: JUAN CARDENAS : [id number] MR: [id number] V: [id number] EXAM DATE: ORDERING PHYSICIAN: KRISTYN BISHOP TECHNOLOGIST: Test Reason : CHEST PAIN Blood Pressure : / mmHG Vent. Rate : 064 BPM Atrial Rate : 064 BPM P-R Int : 154 ms QRS Dur : 068 ms QT Int : 408 ms P-R-T Axes : 047 -45 038 degrees QTc Int : 420 ms Sinus rhythm Possible left atrial enlargement Left axis T wave inversion anterior leads Abnormal ECG Confirmed by JUAN J POND ([id number]) on 04/30/2019 6:37:40 AM Referred By: Confirmed By:JUAN J POND
[2019-04-29 14:38] LABS: PLATELET COUNT, AUTOMATED 238 K/uL (150-450)
--- NOTE | 2019-04-29 15:12 | RADIOLOGY IMAGING REPORT ---
FACILITY: [facility] - [place] PATIENT NAME: Citlalli Martines : 1945 MR: [id number] V: [id number] EXAM DATE: ORDERING PHYSICIAN: KRISTYN BISHOP TECHNOLOGIST: Location: [facility] [place] Patient: Citlalli Martines : 1945 Visit/Account:[id number] Date of Sevice: 04/29/2019 Study: Frontal and lateral views of the chest Indication: Chest pain Comparison study: July 14, 2018 Findings: PA and lateral views of the chest demonstrate no evidence of acute infiltrate. There is no evidence of pleural effusion. There is no evidence of pneumothorax. The mediastinal, cardiac, and diaphragmatic contours are unremarkable. The visualized bony structures are unremarkable. IMPRESSION: Unremarkable chest. Report Dictated By: Madhu Walters at 04/29/2019 2:55 PM Report E-Signed By: Madhu Walters at 04/29/2019 3:06 PM WSN:[id number]
[2019-04-29 17:30] VITALS: BP 117/57
== END 2019-04-29 17:30 | disposition home or self-care (01) ==
LOC: ER 14:09
DX: R07.9 Chest pain, unspecified (principal)
CPT/HCPCS: 71046; 84484; 85025; 93005; 96360; 99284; A9270; J7030; 82040; 82247; 82310; 82374; 82435; 82565; 82947; 84075; 84132; 84155; 84295; 84450; 84460; 84520

== ENCOUNTER → 2019-06-02 | Outpatient (CLI) | payer MEDICARE, OTHER ==
--- NOTE | 2019-05-26 19:33 | RADIOLOGY IMAGING REPORT ---
FACILITY: [facility] - [place], [place] PATIENT NAME: Citlalli Martines : 1945 MR: [id number] V: [id number] EXAM DATE: ORDERING PHYSICIAN: JENNIFER SMITH TECHNOLOGIST: [facility] Patient: Citlalli Martines : 1945 Visit/Account:[id number] Date of Sevice: 05/26/2019 EXAMINATION: Single isotope SPECT imaging with regadenoson infusion and gated SPECT imaging. DATE OF EXAMINATION: 05/26/2019. DATE OF INTERPRETATION: 05/26/2019. REQUESTING PHYSICIAN: JENNIFER SMITH. INDICATION: The patient is a 73-year-old female evaluated for precordial pain. PROCEDURE: After informed consent the patient received an intravenous injection of 11.1 mCi of Tc-99 m sestamibi followed at an appropriate time interval by rest imaging. The patient then subsequently received an intravenous infusion of 0.4 mg of regadenoson per protocol without complication. Resting heart rate was 60 bpm with a peak heart rate of 91 bpm. Blood pressure at rest was 167 / 102 and fo llowing infusion was 167 / 102. Baseline EKG demonstrates sinus rhythm with possible inferior infarc t, slow R-wave progression, cannot rule out anteroseptal infarct, nonspecific T wave abnormality, low voltage ECG. There were no EKG changes of ischemia following infusion. Symptoms were nonspecific. The patient then received an intravenous injection of 29 mCi of Tc-99m sestamibi followed by stress imaging. RAW DATA: Examination of the summed raw data revealed a adequate quality study. MYOCARDIAL PERFUSION: The tomographic images demonstrate normal. GATED IMAGES: The gated images demonstrate normal LV wall motion and systolic function, LVEF is 92%. IMPRESSION: 1. Adequate image quality. 2. Normal myocardial perfusion scan. 3. Normal LV systolic function; LVEF 92%. 4. Based on the results of this exam, the patient appears to be at low risk for future cardiovascular events, risks becomes moderate as patient did not exercise. Report Dictated By: Eva Terrell at 05/26/2019 7:16 PM Report E-Signed By: Eva Terrell at 05/26/2019 7:26 PM WSN:[id number]
[~2019-06-02] MED LIST changes: +REGADENOSON 0.4 MG/5 ML SYR ONE
== END ==
LOC: NUC 05-26 00:32 → LAB 12:49
PROVIDERS: ATTEND Nurse Practitioner Family
DX: R07.2 Precordial pain (principal); R34 Anuria and oliguria
CPT/HCPCS: 36415; 78452; 87088; 93017; A9500; J2785; 82040; 82247; 82310; 82374; 82435; 82565; 82947; 84075; 84132; 84155; 84295; 84450; 84460; 84520

== ENCOUNTER → 2019-06-02 | Outpatient (REF) | payer MEDICARE, OTHER ==
[~2019-06-02] MED LIST changes: -REGADENOSON 0.4 MG/5 ML SYR ONE
== END ==
LOC: ZZSENDIN 15:56
PROVIDERS: ATTEND Family Medicine
DX: R31.21 Asymptomatic microscopic hematuria (principal)
CPT/HCPCS: 81001